=== PATIENT | male | born 1975 | race Caucasian/White ===

== ENCOUNTER 2018-05-26 19:41 | Emergency (ER) | payer BC, MEDICAID ==
[~2018-05-26] VITALS: Ht 172.7 cm; Wt 171.5 kg
--- NOTE | 2018-05-26 20:05 | NUR ---
PT CAME TO EMERGENCY DEPT. COMPLAINING OF L FLANK PAIN, 01/18. PT STATES WAS SEEN AT [facility] AT 1100 TODAY AND HAS A KIDNEY STONE. PT [id number]. RESPIRATIONS EVEN AND UNLABORED. PT PUT ON THE MONITOR AND PENDING EVAL FROM ER .
[2018-05-26] MEDS ORDERED: KETOROLAC TROMETHAMINE INJ 30 MG/ML VIAL ONE (20:19)
[2018-05-26] MEDS ORDERED: ONDANSETRON HCL/PF 4 MG/2 ML VIAL ONE (20:19)
[2018-05-26] MEDS ORDERED: HYDROMORPHONE 1 MG/1 ML DISP.SYRIN ONE (20:20)
[2018-05-26] MEDS ORDERED: HYDROMORPHONE INJ 2 MG/ML DISP.SYRIN IV ONE (20:30)
[2018-05-26] MEDS ORDERED: IV NS 0.9% 1,000 ML BAG IV ONE (20:30)
[2018-05-26] MEDS ORDERED: ONDANSETRON HCL/PF 4 MG/2 ML VIAL IVP ONE (20:30)
[2018-05-26] MEDS ORDERED: KETOROLAC TROMETHAMINE INJ 30 MG/ML VIAL IV ONE (20:30)
--- NOTE | 2018-05-26 20:45 | NUR ---
Patient is resting comfortably in bed with eyes closed. Easily aroused. PT HYPERTENSIVE ON THE MONITOR ER ENTERPRISE ARCHITECT AWARE.
[2018-05-26 22:07] VITALS: BP 144/91
== END 2018-05-26 22:08 | disposition home or self-care (01) ==
LOC: ER 19:47
DX: N20.0 Calculus of kidney (principal); I10 Essential (primary) hypertension; I25.2 Old myocardial infarction; E66.01 Morbid (severe) obesity due to excess calories; Z95.5 Presence of coronary angioplasty implant and graft
CPT/HCPCS: 96374; 96375; 99283; A4606; J1170; J1885; J2405; J7030